=== PATIENT | female | born 1950 | race African-American/Black ===

== ENCOUNTER 2016-10-10 10:00 | Day surgery (SDC) | payer MEDICARE, OTHER ==
--- NOTE | ~2016-10-10 | EGD ---
EGD REPORT [facility] [address] [address] NAME: ALEX MURILLO : [birth year] [place]US : [place] [facility] [place] [id number] AGE: 66 ADM/REG DATE : 10/10/16 MR#: [id number] REPORT SERV DATE: 10/10/16 DICTATED BY: KARLY MINAYA DATE: 10/10/16 REPORT STATUS : Draft [facility]ANSCRIBED [facility]: [facility] DATE: 10/10/16 Endoscopy Center Patient Name: Alex Murillo Date of : 1950 Attending MD: KARLY MINAYA MD Procedure Date No Time: 10/10/2016 Procedure: ERCP Indications: Stent change Referring MD: AWAIS VINCENT Medicines: General Anesthesia Complications: No immediate complications. Procedure: Pre-Anesthesia Assessment: - ASA Grade Assessment: III - A patient with severe systemic disease. After obtaining informed consent, the scope was passed under direct vision. Throughout the procedure, the patient's blood pressure, pulse, and oxygen saturations were monitored continuously. The Duodenoscope was introduced through the mouth, and advanced to the duodenum and used to inject contrast into the bile duct. The ERCP was accomplished without difficulty. The patient tolerated the procedure well. Findings: One stent originating in the biliary tree was emerging from the major papilla. The stent was partially occluded. One stent was removed from the biliary tree using a snare. Placement of into the biliary tree was attempted. This passed successfully. The lower third of the main bile duct contained a single localized stenosis 3 mm in length. Cells for cytology were obtained by brushing. One 10 Fr by 5 cm plastic stent with a single external flap and a single internal flap was placed 4 cm into the common bile duct. Bile flowed through the stent. The stent was in good position. The endoscope was withdrawn from the patient. Impression: - One partially occluded stent from the biliary tree was seen in the major papilla. - One stent was removed from the biliary tree. - A localized biliary stricture was found. The stricture was benign appearing. This was Brushed for cytology. This stricture was treated with stent placement. Recommendation: - Low fat diet. - Await cytology results. - Repeat ERCP in 3 months to exchange stent. - Watch for pancreatitis, bleeding, perforation, and EGD REPORT [address] [place]. [address] NAME: ALEX MURILLO : [birth year] [place]US : [place] [facility] [place] [id number] AGE: 66 ADM/REG DATE : 10/10/16 MR#: [id number] REPORT SERV DATE: 10/10/16 DICTATED BY: KARLY MINAYA DATE: 10/10/16 REPORT STATUS : Draft TRANSCRIBED BY: [employer] DATE: 10/10/16 cholangitis. - Return to my office as previously scheduled. - Discharge patient to home. Procedure Code(s): --- Professional --- 94914, Endoscopic retrograde cholangiopancreatography (ERCP); with removal and exchange of stent(s), biliary or pancreatic duct, including pre- and post-dilation and guide wire passage, when performed, including sphincterotomy, when performed, each stent exchanged Diagnosis Code(s): --- Professional --- T85.590A, Other mechanical complication of bile duct prosthesis, initial encounter Z46.59, Encounter for fitting and adjustment of other gastrointestinal appliance and device K83.1, Obstruction of bile duct CPT copyright 2013 [employer]. All rights reserved. The codes documented in this report are preliminary and upon popped corn oven attendant review may be revised to meet current compliance requirements. Karly Minaya MD KARLY MINAYA MD 10/10/2016 3:00 PM This report has been signed electronically. Number of Addenda: 0 Note Initiated On: 10/10/2016 1:00 PM Scope Withdrawal Time 0 hours 0 minutes 0 seconds [id number] [place] [id number]
[~2016-10-10 10:00] MED LIST: AMB10 PO; BENTYL10 PO; COMP10B PO; COZAAR100 MG PO; ENDOCET1 TA3 PO; HYOMAX-SL0.125 MG PO; KAPIDEX60 MG PO; KLONO5 PO; KLOR-CON 1010 MEQ PO; METHOC500B PO; MIRALAXPKT PO; NEXIUM40 PO; NORV10 PO; NUCYNTA ER200 MG PO; NUCYNTA100 MG PO; PERCOCET1 TA4 PO; ROXICODONE15 MG PO; SUCR PO; VERELAN180 MG PO; VIT D; VITAMIN D31000 UNIT PO; ZANAFLEX2 MG PO; ZOL50 PO
[2016-10-10 10:44] LABS: ALBUMIN 3.7 G/DL (3.5-5.0); ALKALINE PHOSPHATASE 139 U/L (45-117); BUN (BLOOD UREA NITROGEN) 13 MG/DL (6-23); CALCIUM, SERUM 9.1 MG/DL (8.5-10.4); CHLORIDE, SERUM 102 MMOL/L (96-112); CO2 (CARBON DIOXIDE) 30 MMOL/L (24-34); CREATININE 0.94 MG/DL (0.55-1.02); DIRECT BILIRUBIN 0.1 MG/DL (0.0-0.4); GFR AFRICAN AMERICAN 72 ML/MIN (>=60); GFR NON AFRICAN AMERICAN 62 ML/MIN (>=60); GLUCOSE, SERUM 104 MG/DL (60-99); INDIRECT BILIRUBIN(NOT ORDER) 0.6 MG/DL (0.1-0.9); POTASSIUM, SERUM 3.6 MMOL/L (3.5-5.3); SGOT(AST) 15 U/L (5-40); SGPT(ALT) 21 U/L (5-65); SODIUM, SERUM 143 MMOL/L (135-148); TOTAL BILIRUBIN 0.7 MG/DL (0-1.2); TOTAL PROTEIN 8.6 G/DL (6.0-8.5)
== END 2016-10-10 18:25 | disposition home or self-care (01) ==
LOC: DMU 10:00
PROVIDERS: Anesthesiology; Internal Medicine Gastroenterology
PROC: 0F798DZ Dilation of Common Bile Duct with Intraluminal Device, Via Natural or Artificial Opening Endoscopic (ICD-10-PCS; 2016-10-10)
PROC: 0FPB8DZ Removal of Intraluminal Device from Hepatobiliary Duct, Via Natural or Artificial Opening Endoscopic (ICD-10-PCS; principal; 2016-10-10 11:00)
DX: T85.590A Other mechanical complication of bile duct prosthesis, initial encounter (principal); K83.1 Obstruction of bile duct; F41.9 Anxiety disorder, unspecified; E66.9 Obesity, unspecified; G47.33 Obstructive sleep apnea (adult) (pediatric); G89.29 Other chronic pain; M54.5 Low back pain; F32.9 Major depressive disorder, single episode, unspecified; Z88.2 Allergy status to sulfonamides; I10 Essential (primary) hypertension; Z88.8 Allergy status to other drugs, medicaments and biological substances; Z88.1 Allergy status to other antibiotic agents; Z79.82 Long term (current) use of aspirin; Z79.891 Long term (current) use of opiate analgesic; Z79.899 Other long term (current) drug therapy; Z96.652 Presence of left artificial knee joint; Z90.49 Acquired absence of other specified parts of digestive tract; Z98.890 Other specified postprocedural states; Z90.711 Acquired absence of uterus with remaining cervical stump
CPT/HCPCS: 74330; 80048; 80076; 88112; A9270-GY; C1769; C2625; J1610; J2250; J2405; J2543; J2710; J3010; Q9967

== ENCOUNTER 2016-12-20 13:46 | Inpatient (IN) | payer MEDICARE, OTHER ==
--- NOTE | ~2016-12-20 | HP ---
History And Physical [address] [place]. [address] NAME: ALEX MURILLO : [birth year] STATUS : ADM [facility] PAT#: [id number] AGE: 66 ADM/REG DATE : 12/20/16 MR#: [id number] REPORT SERV DATE: 12/21/16 DICTATED BY: COURTNEY TUBBS DATE: 12/21/16 REPORT STATUS : Draft TRANSCRIBED BY: MODL DATE: 12/21/16 DATE OF ADMISSION: 12/20/2016 CHIEF COMPLAINT: A 66-year-old female presenting with abdominal pain and subjective fevers. HISTORY OF PRESENT ILLNESS: The patient's history was obtained through careful interview with the patient and niece, coupled with review of [facility] and [facility] medical records. The patient has longstanding biliary obstruction and has needed a biliary stent followed by Dr. Sol. Most recently, she had an ERCP with biliary stent replacement on 10/10/2016. For about a week now, the patient has been feeling "bad", stating "sometimes, I felt like I was dying." She describes epigastric abdominal pain going into the right upper quadrant, a cramping, not sharp like pain, 10/10 severity. Occasionally, she noticed a dark discoloration of her urine. She has felt off balance, lightheaded, subjective fevers and chills, some nausea, but no vomiting. She has been having difficulty eating over this last week because of nausea. No shortness of breath. No cough. No chest pain. REVIEW OF SYSTEMS: Otherwise, complete review of systems and a 14-point review of systems was obtained and was negative. PAST MEDICAL HISTORY: 1. Biliary stent placement under the care Dr. Sol. 2. Hypertension. 3. Pancreatitis. 4. Depression. 5. Gastroesophageal reflux disorder. 6. Elevated cholesterol. 7. A 4 mm pulmonary nodule. 8. MRSA postoperative infection. 9. No cardiac disease. PAST SURGICAL HISTORY: 1. Hysterectomy with oophorectomy. 2. Cholecystectomy. 3. Left ovarian cyst surgery. 4. Back surgery x3. 5. Nasal septum repair. 6. Bilateral knee operations. History And Physical [address] [address] NAME: ALEX MURILLO : [birth year] STATUS : ADM [facility] PAT#: [id number] AGE: 66 ADM/REG DATE : 12/20/16 MR#: [id number] REPORT SERV DATE: 12/21/16 DICTATED BY: COURTNEY TUBBS DATE: 12/21/16 REPORT STATUS : Draft TRANSCRIBED BY: ROBB DATE: 12/21/16 7. Partial thyroidectomy. ALLERGIES: SULFA, STATINS, ASPIRIN, VANCOMYCIN, MOXIFLOXACIN, AND PEPCID. SOCIAL HISTORY: No tobacco abuse. No alcohol abuse. She is on disability. Ambulates with a cane. Lives alone. Has two children. Supportive niece at bedside. FAMILY HISTORY: Her son at 45 years of age in a motorcycle accident. Mother with stroke and heart attack. Father with heart disease. Another son with multiple sclerosis. Sister at 35 years of age of asthma, sister with breast cancer, sister with colon cancer. CURRENT MEDICATIONS: Include Norvasc 5 mg p.o. daily, Lipitor 20 mg p.o. daily, Zyrtec 10 mg p.o. daily, vitamin D, diclofenac gel, Bentyl 10 mg before meals and at bedtime, Nexium 40 mg p.o. b.i.d., Cozaar 100 mg p.o. daily, Singulair 10 mg p.o. daily, Roxicodone 15 mg p.o. every six hours p.r.n., MiraLAX packet daily, Zoloft 50 mg p.o. daily, sucralfate 1 g before meals and at bedtime. PHYSICAL EXAMINATION: VITAL SIGNS: Temperature 98.5, pulse 102, blood pressure 197/77, respiratory rate 20, O2 sat 98% on room air. GENERAL: An ill-appearing female, in no evidence of distress secondary to abdominal pain and nausea. HEENT: Pupils equal, round, and reactive to light. No conjunctival pallor. No scleral icterus. Nares are patent. Oropharynx is clear of obstruction. Moist mucous membranes. NECK: Trachea midline. No thyromegaly. LYMPH: No cervical lymphadenopathy. No supraclavicular lymphadenopathy. RESPIRATORY: Clear to auscultation at bases. No wheezes, rales, or rhonchi. Normal respiratory effort. CARDIOVASCULAR: Tachycardic. Regular rhythm. No murmurs, rubs, or gallops. No extremity edema is appreciated. ABDOMEN: Significant tenderness particularly in the epigastric area with guarding. No rebound. Nondistended. No hepatosplenomegaly. DERMATOLOGICAL: Warm and dry. EXTREMITIES: No pallor. No cyanosis. PSYCHIATRIC: Normal affect. Good mood. Alert and oriented x3. LABORATORY DATA: White blood cell count 7.3, hemoglobin 12, hematocrit 37, platelets 331. Sodium 143, potassium 3.2, chloride 104, bicarb 29, BUN 11, creatinine 0.95, glucose 103, alkaline phosphatase 238, ALT 50, AST 45. Urinalysis shows negative white blood cells and 14 hyaline casts. STUDIES: 1. EKG by my own evaluation shows sinus rhythm, no major abnormalities. 2. CT scan of the abdomen shows dilated biliary tree. ASSESSMENT AND PLAN: History And Physical [address] [address] NAME: ALEX MURILLO : [birth year] STATUS : ADM [facility] PAT#: [id number] AGE: 66 ADM/REG DATE : 12/20/16 MR#: [id number] REPORT SERV DATE: 12/21/16 DICTATED BY: COURTNEY TUBBS DATE: 12/21/16 REPORT STATUS : Draft TRANSCRIBED BY: ROBB DATE: 12/21/16 1. Biliary obstruction with biliary stent that has apparently migrated. Consult Dr. Sol, senior technical editor for replacement of biliary stent. 2. Subjective fevers and chills. Cover with IV antibiotics, to cover for possible cholangitis. 3. Hypertension, p.r.n. medications and pain control. KPL/MODL Courtney Tubbs M.D. / [id number] CC: Estela Calvert M.D. Richard Sadowitz, M.D.
--- NOTE | ~2016-12-20 | DS ---
Discharge Summary [place] [id number] [facility] [place]. [address] NAME: ALEX MURILLO : 46 STATUS : DIS IN PAT#: [id number] AGE: 66 ADM/REG DATE : 12/21/16 MR#: [id number] REPORT SERV DATE: 12/25/16 DICTATED BY: KARLY LYLES DATE: 12/24/16 REPORT STATUS : Draft TRANSCRIBED BY: MODL DATE: 12/24/16 ADMISSION DATE: 12/21/2016 DISCHARGE DATE: FINAL DIAGNOSES: 1. Choledocholithiasis, status post stone removal. 2. Clogged biliary stent status post removal. 3. Hypertension. 4. Status post hypokalemia. 5. Status post hypomagnesemia. 6. Depression. 7. Gastroesophageal reflux disease. DIAGNOSTIC EXAM: CAT scan of the abdomen and pelvis showing persistent pronounced dilatation of the biliary tree, extending to the pancreatic head. Most likely due to stricture. The stent does not appear to lie within the biliary tree. No calcified stone is appreciated. No definite pancreatic mass or abdominal adenopathy to suggest neoplasm. MRI of the abdomen showing biliary stent in place within the distal common bile duct, appearing to extend into the region of the duodenum. Continued prominent dilatation of the stent of biliary tree and to a lesser extent of the intrahepatic bile duct. Continued dilatation of the pancreatic duct as described. No definite obstructing mass or stone. HOSPITAL COURSE: Please refer to the H and P done by Dr. Perez, dated on 12/21/2016. Briefly, this is a 66-year-old female, who comes with abdominal pain. The patient has a history of biliary obstruction and has biliary stent placed with Dr. Sol and it was recently replaced on 10/2016. The patient comes in for a week of having abdominal pain, dark colored urine, subjective fever and chills, nausea, but no vomiting. The patient then came to the emergency room, admitted by Dr. Perez, and we did the above test. We got Dr. Sol involved and finally he did an ERCP and that showed clogged stent that was removed, three to four stones in the common bile duct and that was removed. The patient felt better afterwards, able to tolerate the clear liquid diet. Once the patient tolerated the soft diet, we will get clearance from GI to discharge the patient and she will be followed up by Dr. Holder in one to two weeks, Dr. Zapata as scheduled, and Dr. Sol in three weeks. The patient will be on the following medications; Norvasc 10 mg a day, Lipitor 20 mg at night, vitamin D 400 units a day, Bentyl 10 mg before meals and at bedtime, Zyrtec 10 mg a day, Cozaar 100 mg a day, Singulair 10 mg a day, Nexium 40 mg twice a day, Zoloft 50 mg a day, Carafate 1 g three times a day, Roxicodone 15 mg q.6 h. p.r.n., MiraLAX one packet a day. This has been explained to the patient. TIME SPENT: 35 minutes. DELBERT/ROBB Karly Pizarro Discharge Summary [address] [address] NAME: ALEX MURILLO : [birth year] STATUS : DIS IN PAT#: [id number] AGE: 66 ADM/REG DATE : 12/21/16 MR#: [id number] REPORT SERV DATE: 12/25/16 DICTATED BY: KARLY LYLES. DATE: 12/24/16 REPORT STATUS : Draft TRANSCRIBED BY: ROBB DATE: 12/24/16 Estela Lyles / [id number] CC: Estela Calvert M.D. Michael Dykes, MD
--- NOTE | ~2016-12-20 | EGD ---
EGD REPORT [facility] [address] [address] NAME: ALEX MURILLO : [birth year] STATUS : ADM IN PAT#: [id number] AGE: 66 ADM/REG DATE : 12/21/16 MR#: [id number] REPORT SERV DATE: 12/23/16 DICTATED BY: KARLY MINAYA DATE: 12/23/16 REPORT STATUS : Draft TRANSCRIBED BY: [facility] DATE: 12/23/16 Endoscopy Center Patient Name: Alex Murillo Date of : 1950 Attending MD: KARLY MINAYA MD Procedure Date No Time: 12/23/2016 Procedure: ERCP Indications: Abdominal pain of suspected biliary origin, Stent removal Referring MD: AWAIS VINCENT Medicines: General Anesthesia Complications: No immediate complications. Procedure: Pre-Anesthesia Assessment: - ASA Grade Assessment: III - A patient with severe systemic disease. After obtaining informed consent, the scope was passed under direct vision. Throughout the procedure, the patient's blood pressure, pulse, and oxygen saturations were monitored continuously. The TJF [id number] was introduced through the mouth, and advanced to the duodenum and used to inject contrast into the bile duct. The ERCP was accomplished without difficulty. The patient tolerated the procedure well. Findings: One stent was removed from the biliary tree using a snare. The bile duct was deeply cannulated with the short-nosed traction autotome. Contrast was injected. I personally interpreted the bile duct images. There was brisk flow of contrast through the ducts. Image quality was adequate. Contrast extended to the hepatic ducts. Contrast extended to the entire biliary tree. The middle third of the main bile duct contained four stones, the largest of which was 8 mm in diameter. The biliary tree was swept with a 12 mm balloon starting at the upper third of the main bile duct. All stones were removed. Impression: - One stent was removed from the biliary tree. - Choledocholithiasis was found. Complete removal was accomplished by balloon extraction. Recommendation: - Avoid aspirin and nonsteroidal anti-inflammatory medicines. - Return to my office in 3 weeks. - Check liver enzymes (AST, ALT, alkaline phosphatase, bilirubin) in the morning. - Check amylase in the morning. - Check lipase in the morning. EGD REPORT [address] [address] NAME: ALEX MURILLO : [birth year] STATUS : ADM IN [facility]#: [id number] AGE: 66 ADM/REG DATE : 12/21/16 MR#: [id number] REPORT SERV DATE: 12/23/16 DICTATED BY: KARLY MINAYA DATE: 12/23/16 REPORT STATUS : Draft TRANSCRIBED BY: [employer] DATE: 12/23/16 - If all lab work is negative then she can be D/[place] home tomorrow. - [facility] patient to [facility] for [facility]. Procedure Code(s): --- Professional --- 99974, Endoscopic retrograde cholangiopancreatography (ERCP); with removal of foreign body(s) or stent(s) from biliary/pancreatic duct(s) 43714, Endoscopic retrograde cholangiopancreatography (ERCP); with removal of calculi/debris from biliary/pancreatic duct(s) Diagnosis Code(s): --- Professional --- Z46.59, Encounter for fitting and adjustment of other gastrointestinal appliance and device K80.50, Calculus of bile duct without cholangitis or cholecystitis without obstruction R10.9, Unspecified abdominal pain CPT copyright 2013 [employer]. All rights reserved. The codes documented in this report are preliminary and upon python programmer review may be revised to meet current compliance requirements. Karly Minaya MD KARLY MINAYA MD 12/23/2016 8:56 PM This report has been signed electronically. Number of Addenda: 0 Note Initiated On: 12/23/2016 3:58 PM Scope Withdrawal Time 0 hours 0 minutes 0 seconds [id number] [place] [address]
[2016-12-20 14:20] LABS: BASOPHILS 0.3 %; BASOPHILS ABSOLUTE 0.02 10/3/uL (0.0-0.16); EOSINOPHILS 1.8 %; EOSINOPHILS ABSOLUTE 0.13 10/3/uL (0.0-0.53); ER CBC TAT 0 Hrs 11 Mins; HEMATOCRIT 37.4 % (36.0-48.0); IMMATURE GRANULOCYTES 0.1 %; IMMATURE GRANULOCYTES ABSOLUTE 0.01 10/3/uL (0.0-0.11); LYMPHOCYTES 23.9 %; LYMPHOCYTES ABSOLUTE 1.74 10/3/uL (0.67-4.30); MEAN CORPUS HGB CONC 32.1 g/dL (32.0-36.0); MEAN CORPUSCULAR HEMOGLOB 28.5 pg (26.0-34.0); MEAN PLATELET VOLUME 10.2 fL (9.2-13.0); MONOCYTES 5.8 %; MONOCYTES ABSOLUTE 0.42 10/3/uL (0.21-1.20); NEUTROPHILS 68.1 %; NEUTROPHILS ABSOLUTE 4.96 10/3/uL (2.02-8.40); PLATELET COUNT 331 10/3/uL (150-400); RBC DISTRIBUTION WIDTH 15.7 % (12.0-16.0); RED CELL COUNT 4.21 10/6/uL (4.0-5.6); WHITE BLOOD CELLS 7.3 10/3/uL (4.5-10.5)
[2016-12-20 14:24] LABS: MANUAL DIFF NO %; MEAN CORPUSCULAR VOLUME 88.8 fL (80-100)
[2016-12-20 14:40] LABS: A/G RATIO 0.6 (0.7-1.9); ALBUMIN 3.3 G/DL (3.5-5.0); ALKALINE PHOSPHATASE 238 U/L (45-117); BUN (BLOOD UREA NITROGEN) 11 MG/DL (6-23); CALCIUM, SERUM 9.5 MG/DL (8.5-10.4); CHLORIDE, SERUM 104 MMOL/L (96-112); CO2 (CARBON DIOXIDE) 29 MMOL/L (24-34); CREATININE 0.95 MG/DL (0.55-1.02); GFR AFRICAN AMERICAN 71 ML/MIN (>=60); GFR NON AFRICAN AMERICAN 62 ML/MIN (>=60); GLOBULIN 5.2 G/DL (2.5-4.1); GLUCOSE, SERUM 103 MG/DL (60-99); POTASSIUM, SERUM 3.2 MMOL/L (3.5-5.3); SGOT(AST) 45 U/L (5-40); SGPT(ALT) 50 U/L (5-65); SODIUM, SERUM 143 MMOL/L (135-148); TOTAL PROTEIN 8.5 G/DL (6.0-8.5)
[2016-12-20 15:22] LABS: ASCORBIC ACID (UR NOT ORDER) NEG (NEG); BILIRUBIN, URINE NEGATIVE (NEG); ER URINALYSIS TAT 0 Hrs 20 Mins; KETONE, URINE TRACE MG/DL (NEG); LEUKOCYTE ESTERASE(NOT OR NEG (NEG); NITRITE (URINE) NEG (NEG); WBC (NOT ORDERED) (RFLEX) 4 (0-5)
[2016-12-20 16:57] LABS: TROPONIN I <0.02 NG/ML (<0.05)
[2016-12-20] MEDS ORDERED: ROXICODONE15 MG PO (18:57)
[2016-12-20] MEDS ORDERED: NEXIUM40 PO (18:57)
[2016-12-20] MEDS ORDERED: ZYRTEC ALLGY10 MG PO (18:57)
[2016-12-20] MEDS ORDERED: SINGULAIR1 PO (18:57)
[2016-12-20] MEDS ORDERED: LIPITOR20 PO (18:57)
[2016-12-20] MEDS ORDERED: NORV10 PO (18:58)
[2016-12-20] MEDS ORDERED: COZAAR100 MG PO (18:58)
[2016-12-20] MEDS ORDERED: VOLTAREN1 % TOP (18:58)
[2016-12-20] MEDS ORDERED: BENTYL10 PO (18:58)
[2016-12-20] MEDS ORDERED: MIRALAX POWDER1 PKT PO (18:59)
[2016-12-20] MEDS ORDERED: ZOL50 PO (18:59)
[2016-12-20] MEDS ORDERED: SUCR PO (18:59)
[2016-12-20] MEDS ORDERED: VITAMIN D400 UNI1 PO (18:59)
[2016-12-21 05:12] LABS: BASOPHILS 0.4 %; BASOPHILS ABSOLUTE 0.03 10/3/uL (0.0-0.16); EOSINOPHILS ABSOLUTE 0.17 10/3/uL (0.0-0.53); HEMATOCRIT 34.2 % (36.0-48.0); HEMOGLOBIN 10.9 g/dL (12.0-16.0); IMMATURE GRANULOCYTES 0.2 %; IMMATURE GRANULOCYTES ABSOLUTE 0.02 10/3/uL (0.0-0.11); LYMPHOCYTES 25.1 %; MEAN CORPUS HGB CONC 31.9 g/dL (32.0-36.0); MEAN CORPUSCULAR HEMOGLOB 28.5 pg (26.0-34.0); MEAN CORPUSCULAR VOLUME 89.5 fL (80-100); MEAN PLATELET VOLUME 10.4 fL (9.2-13.0); MONOCYTES 9.2 %; MONOCYTES ABSOLUTE 0.77 10/3/uL (0.21-1.20); NEUTROPHILS 63.1 %; NEUTROPHILS ABSOLUTE 5.29 10/3/uL (2.02-8.40); PLATELET COUNT 295 10/3/uL (150-400); RBC DISTRIBUTION WIDTH 15.9 % (12.0-16.0); RED CELL COUNT 3.82 10/6/uL (4.0-5.6); WHITE BLOOD CELLS 8.4 10/3/uL (4.5-10.5)
[2016-12-21 05:19] LABS: MANUAL DIFF NO %
[2016-12-21 05:21] LABS: INTERNATIONAL NORMAL RATI 1.2 UNITS (-); PARTIAL THROMBO TIME 41.7 SEC (22.5-37.2); PROTIME (NOT ORD) 15.3 SEC (12.0-14.5)
[2016-12-21 08:37] LABS: A/G RATIO 0.7 (0.7-1.9); BUN (BLOOD UREA NITROGEN) 9 MG/DL (6-23); CO2 (CARBON DIOXIDE) 26 MMOL/L (24-34); CREATININE 0.86 MG/DL (0.55-1.02); GFR AFRICAN AMERICAN 80 ML/MIN (>=60); GFR NON AFRICAN AMERICAN 69 ML/MIN (>=60); GLOBULIN 4.6 G/DL (2.5-4.1); GLUCOSE, SERUM 114 MG/DL (60-99); SGPT(ALT) 42 U/L (5-65); TOTAL BILIRUBIN 0.7 MG/DL (0-1.2); TOTAL PROTEIN 7.6 G/DL (6.0-8.5); TROPONIN I <0.02 NG/ML (<0.05)
[2016-12-21 08:38] LABS: ALKALINE PHOSPHATASE 208 U/L (45-117); SGOT(AST) 47 U/L (5-40)
[2016-12-21 09:02] LABS: CHLORIDE, SERUM 104 MMOL/L (96-112)
[2016-12-21 09:03] LABS: POTASSIUM, SERUM 4.2 MMOL/L (3.5-5.3); SODIUM, SERUM 136 MMOL/L (135-148)
[2016-12-22 07:21] LABS: BASOPHILS 0.3 %; BASOPHILS ABSOLUTE 0.02 10/3/uL (0.0-0.16); EOSINOPHILS 2.7 %; EOSINOPHILS ABSOLUTE 0.21 10/3/uL (0.0-0.53); HEMATOCRIT 35.5 % (36.0-48.0); HEMOGLOBIN 11.3 g/dL (12.0-16.0); IMMATURE GRANULOCYTES 0.1 %; IMMATURE GRANULOCYTES ABSOLUTE 0.01 10/3/uL (0.0-0.11); LYMPHOCYTES 34.1 %; LYMPHOCYTES ABSOLUTE 2.65 10/3/uL (0.67-4.30); MANUAL DIFF NO %; MEAN CORPUS HGB CONC 31.8 g/dL (32.0-36.0); MEAN CORPUSCULAR HEMOGLOB 28.3 pg (26.0-34.0); MEAN PLATELET VOLUME 10.5 fL (9.2-13.0); MONOCYTES 7.5 %; MONOCYTES ABSOLUTE 0.58 10/3/uL (0.21-1.20); NEUTROPHILS 55.3 %; PLATELET COUNT 285 10/3/uL (150-400); RBC DISTRIBUTION WIDTH 15.8 % (12.0-16.0); RED CELL COUNT 3.99 10/6/uL (4.0-5.6); WHITE BLOOD CELLS 7.8 10/3/uL (4.5-10.5)
[2016-12-22 07:36] LABS: A/G RATIO 0.6 (0.7-1.9); ALBUMIN 2.9 G/DL (3.5-5.0); ALKALINE PHOSPHATASE 201 U/L (45-117); BUN (BLOOD UREA NITROGEN) 12 MG/DL (6-23); CALCIUM, SERUM 8.7 MG/DL (8.5-10.4); CHLORIDE, SERUM 103 MMOL/L (96-112); CO2 (CARBON DIOXIDE) 28 MMOL/L (24-34); CREATININE 0.77 MG/DL (0.55-1.02); GFR AFRICAN AMERICAN 92 ML/MIN (>=60); GFR NON AFRICAN AMERICAN 79 ML/MIN (>=60); GLOBULIN 4.7 G/DL (2.5-4.1); GLUCOSE, SERUM 116 MG/DL (60-99); SGOT(AST) 23 U/L (5-40); SGPT(ALT) 33 U/L (5-65); SODIUM, SERUM 137 MMOL/L (135-148); TOTAL BILIRUBIN 0.9 MG/DL (0-1.2); TOTAL PROTEIN 7.6 G/DL (6.0-8.5)
[2016-12-24 05:04] LABS: BASOPHILS 0.1 %; BASOPHILS ABSOLUTE 0.01 10/3/uL (0.0-0.16); EOSINOPHILS 1.3 %; EOSINOPHILS ABSOLUTE 0.13 10/3/uL (0.0-0.53); HEMATOCRIT 37.3 % (36.0-48.0); HEMOGLOBIN 11.7 g/dL (12.0-16.0); IMMATURE GRANULOCYTES 0.3 %; IMMATURE GRANULOCYTES ABSOLUTE 0.03 10/3/uL (0.0-0.11); MANUAL DIFF NO %; MEAN CORPUS HGB CONC 31.4 g/dL (32.0-36.0); MEAN CORPUSCULAR HEMOGLOB 28.5 pg (26.0-34.0); MEAN PLATELET VOLUME 10.3 fL (9.2-13.0); MONOCYTES 4.2 %; MONOCYTES ABSOLUTE 0.42 10/3/uL (0.21-1.20); NEUTROPHILS 79.1 %; NEUTROPHILS ABSOLUTE 7.92 10/3/uL (2.02-8.40); PLATELET COUNT 360 10/3/uL (150-400); RBC DISTRIBUTION WIDTH 15.9 % (12.0-16.0)
[2016-12-24 05:09] LABS: A/G RATIO 0.6 (0.7-1.9); ALBUMIN 3.2 G/DL (3.5-5.0); ALKALINE PHOSPHATASE 185 U/L (45-117); BUN (BLOOD UREA NITROGEN) 8 MG/DL (6-23); CALCIUM, SERUM 9.4 MG/DL (8.5-10.4); CHLORIDE, SERUM 102 MMOL/L (96-112); CO2 (CARBON DIOXIDE) 28 MMOL/L (24-34); CREATININE 0.86 MG/DL (0.55-1.02); DIRECT BILIRUBIN 0.1 MG/DL (0.0-0.4); GFR AFRICAN AMERICAN 80 ML/MIN (>=60); GFR NON AFRICAN AMERICAN 69 ML/MIN (>=60); GLUCOSE, SERUM 160 MG/DL (60-99); INDIRECT BILIRUBIN(NOT ORDER) 0.4 MG/DL (0.1-0.9); POTASSIUM, SERUM 4.1 MMOL/L (3.5-5.3); SGOT(AST) 30 U/L (5-40); SGPT(ALT) 25 U/L (5-65); SODIUM, SERUM 140 MMOL/L (135-148); TOTAL BILIRUBIN 0.5 MG/DL (0-1.2); TOTAL PROTEIN 8.2 G/DL (6.0-8.5)
== END 2016-12-24 18:01 | disposition home or self-care (01) | DRG 949 ==
LOC: ER 13:46 → 2SO 19:15
PROVIDERS: Emergency Medicine; Hospitalist; Internal Medicine; Internal Medicine Gastroenterology
PROC: 0F798DZ Dilation of Common Bile Duct with Intraluminal Device, Via Natural or Artificial Opening Endoscopic (ICD-10-PCS; principal; 2016-12-23 20:07)
PROC: 0FPB8DZ Removal of Intraluminal Device from Hepatobiliary Duct, Via Natural or Artificial Opening Endoscopic (ICD-10-PCS; 2016-12-23 20:07)
DX: T85.858A Stenosis due to other internal prosthetic devices, implants and grafts, initial encounter (principal); K83.1 Obstruction of bile duct; K80.51 Calculus of bile duct without cholangitis or cholecystitis with obstruction; E83.42 Hypomagnesemia; R50.9 Fever, unspecified; I10 Essential (primary) hypertension; F32.9 Major depressive disorder, single episode, unspecified; K21.9 Gastro-esophageal reflux disease without esophagitis; E78.00 Pure hypercholesterolemia, unspecified; R91.1 Solitary pulmonary nodule; E87.6 Hypokalemia; Z86.14 Personal history of Methicillin resistant Staphylococcus aureus infection; Z98.890 Other specified postprocedural states; Z88.2 Allergy status to sulfonamides; Z88.1 Allergy status to other antibiotic agents; Z88.6 Allergy status to analgesic agent; Z88.8 Allergy status to other drugs, medicaments and biological substances
CPT/HCPCS: 74177; 74181; 74330; 80053; 80076; 81001; 82150; 82962; 83605; 83690; 83735; 83880; 84443; 84484; 85025; 85610; 85730; 93005; 96374; 96375; 99285; A9270-GY; J0330; J1170; J2370; J2405; J3010; J3475; Q9967

== ENCOUNTER 2017-01-03 13:06 | Emergency (ER) | payer MEDICARE, OTHER ==
[~2017-01-03 13:06] MED LIST changes: +LIPITOR20 PO; +MIRALAX POWDER1 PKT PO; +SINGULAIR1 PO; +VITAMIN D400 UNI1 PO; +VOLTAREN1 % TOP; +ZYRTEC ALLGY10 MG PO
[2017-01-03 14:27] LABS: BASOPHILS 0.2 %; BASOPHILS ABSOLUTE 0.02 10/3/uL (0.0-0.16); EOSINOPHILS 3.7 %; EOSINOPHILS ABSOLUTE 0.35 10/3/uL (0.0-0.53); HEMATOCRIT 35.4 % (36.0-48.0); IMMATURE GRANULOCYTES 0.2 %; IMMATURE GRANULOCYTES ABSOLUTE 0.02 10/3/uL (0.0-0.11); LYMPHOCYTES 30.2 %; LYMPHOCYTES ABSOLUTE 2.87 10/3/uL (0.67-4.30); MANUAL DIFF NO %; MEAN CORPUS HGB CONC 31.1 g/dL (32.0-36.0); MEAN CORPUSCULAR HEMOGLOB 28.4 pg (26.0-34.0); MEAN CORPUSCULAR VOLUME 91.5 fL (80-100); MEAN PLATELET VOLUME 10.3 fL (9.2-13.0); MONOCYTES 5.3 %; NEUTROPHILS 60.4 %; NEUTROPHILS ABSOLUTE 5.73 10/3/uL (2.02-8.40); PLATELET COUNT 346 10/3/uL (150-400); RBC DISTRIBUTION WIDTH 16.9 % (12.0-16.0); RED CELL COUNT 3.87 10/6/uL (4.0-5.6); WHITE BLOOD CELLS 9.5 10/3/uL (4.5-10.5)
[2017-01-03 14:34] LABS: ASCORBIC ACID (UR NOT ORDER) 40 (NEG); BILIRUBIN, URINE NEGATIVE (NEG); ER URINALYSIS TAT 0 Hrs 13 Mins; KETONE, URINE NEGATIVE (NEG); LEUKOCYTE ESTERASE(NOT OR NEG (NEG); NITRITE (URINE) NEG (NEG); WBC (NOT ORDERED) (RFLEX) 1 (0-5)
[2017-01-03 14:42] LABS: A/G RATIO 0.8 (0.7-1.9); ALBUMIN 3.4 G/DL (3.5-5.0); BUN (BLOOD UREA NITROGEN) 8 MG/DL (6-23); CALCIUM, SERUM 9.1 MG/DL (8.5-10.4); CHLORIDE, SERUM 104 MMOL/L (96-112); CO2 (CARBON DIOXIDE) 31 MMOL/L (24-34); CREATININE 0.75 MG/DL (0.55-1.02); GFR AFRICAN AMERICAN 95 ML/MIN (>=60); GFR NON AFRICAN AMERICAN 82 ML/MIN (>=60); GLOBULIN 4.4 G/DL (2.5-4.1); POTASSIUM, SERUM 3.5 MMOL/L (3.5-5.3); SGOT(AST) 44 U/L (5-40); SGPT(ALT) 18 U/L (5-65); SODIUM, SERUM 140 MMOL/L (135-148); TOTAL PROTEIN 7.8 G/DL (6.0-8.5)
[2017-01-03 14:43] LABS: ALKALINE PHOSPHATASE 136 U/L (45-117); GLUCOSE, SERUM 99 MG/DL (60-99); TOTAL BILIRUBIN 1.1 MG/DL (0-1.2)
[2017-01-03 16:11] LABS: LACTATE 1.2 MMOL/L (0.3-2.4)
== END 2017-01-03 18:22 | disposition home or self-care (01) ==
LOC: ER 13:06
PROVIDERS: Nurse Practitioner
DX: R10.10 Upper abdominal pain, unspecified (principal); M54.5 Low back pain; I10 Essential (primary) hypertension; K21.9 Gastro-esophageal reflux disease without esophagitis; Z88.6 Allergy status to analgesic agent; Z88.1 Allergy status to other antibiotic agents; Z88.8 Allergy status to other drugs, medicaments and biological substances; Z79.899 Other long term (current) drug therapy
CPT/HCPCS: 74176; 80053; 81001; 83605; 85025; 87040; 96374; 96375; 99284; J2405